=== PATIENT | female | born 1960 | race Caucasian/White ===

== ENCOUNTER 2016-05-29 10:45 | Emergency (ER) | payer OTHER ==
[~2016-05-29] VITALS: Ht 167.6 cm; Wt 78.5 kg
--- NOTE | 2016-05-29 11:44 | ED GENERAL ADULT ---
History of Present Illness General Chief Complaint: Upper Respiratory Sx/Fever Stated Complaint: COUGH, MAGALLANES,FEVER Source: patient Exam Limitations: no limitations Vital Signs & Intake/Output Vital Signs & Intake/Output Vital Signs Date Time Temp Pulse Resp B/P B/P Pulse O2 O2 Flow FiO2 Mean Ox Delivery Rate 05/29 1255 97.2 76 20 136/81 97 Room Air Room Air 05/29 1144 98 Room Air 05/29 1055 97.4 84 20 146/93 98 Room Air Room Air Allergies Coded Allergies: No Known Allergies (05/29/16) Reconcile Medications Amoxicillin 500 MG CAPSULE 1 CAP PO TID ANTIBIOTIC, INFECTION (Reported) Levothyroxine Sodium 100 MCG TABLET 1 TAB PO DAILY THYROID HEALTH (Reported) Linaclotide (Linzess) 290 MCG CAPSULE 1 CAP PO DAILY NEEDED CONSTIPATION ( Reported) Pantoprazole Sodium 40 MG TABLET.DR 1 TAB PO DAILY ACID REFLUX (Reported) Triage Note: PT TO ED WITH C/O FEVER, COUGH AND CONGESTION, HEADACHE, SAW PMD ON THURSDAY PUT ON ANTIBIOTICS, TAKING TYLENOL. PT TO ED WITH C/O STABBING HEADACHE TO TOP OF HEAD. Triage Nurses Notes Reviewed? yes Onset: Abrupt Duration: week(s): (2), constant, continues in ED Timing: recent history Injury Environment: home Severity: moderate, severe No Modifying Factors: none HPI: 56-year-old female comes into emergency room with multiple complaints. Patient reports that she's been feeling sick for about 2 weeks. She's been experiencing fever chills cough with mucus production runny nose and sinus congestion. She saw her primary care doctor on Thursday started her on amoxicillin. She also reports that she was experiencing a headache or 2 weeks but it got progressively worse over the last 4 days. She denies any vomiting or vision loss. Severe body aches and chills. Patient feels like she is not getting better but getting worse. Patient is looking for a more thorough workup. Denies any other associated symptoms. Denies any neck pain. Past History Travel History Traveled to [place] past 21 day No Medical History Any Pertinent Medical History? 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 No Review of Systems Review of Systems Constitutional: Reports: see HPI. EENTM: Reports: see HPI. Respiratory: Reports: see HPI. Cardiovascular: Reports: no symptoms. GI: Reports: no symptoms. Genitourinary: Reports: no symptoms. Musculoskeletal: Reports: see HPI. Skin: Reports: no symptoms. Neurological/Psychological: Reports: see HPI. Hematologic/Endocrine: Reports: no symptoms. Immunologic/Allergic: Reports: no symptoms. All Other Systems: Reviewed and Negative Physical Exam Physical Exam General Appearance: well developed/nourished, alert, awake, mild distress Head: atraumatic, normal appearance Eyes: Bilateral: normal appearance, EOMI. Ears, Nose, Throat: normal pharynx, normal ENT inspection Neck: normal inspection, full range of motion, no nuchal rigidity, full range of motion of neck, Respiratory: normal breath sounds, no respiratory distress Cardiovascular: regular rate/rhythm Back: normal inspection Extremities: normal inspection, normal range of motion, no edema Neurologic/Psych: no motor/sensory deficits, awake, alert, oriented x 3, normal gait, normal mood/affect Skin: intact, normal color Core Measures ACS in differential dx? No CVA/TIA Diagnosis: No Severe Sepsis Present: No Septic Shock Present: No Progress Differential Diagnoses I considered the following diagnoses in my evaluation of the patient: Influenza , sinusitis, pneumonia, bronchitis, viral syndrome, meningitis, subarachnoid hemorrhage, tension headache, migraine headache, temporal arteritis, Plan of Care: Orders Procedure Date/time Status RAPID VIRAL INFLUENZA A 05/29 1123 Complete VIRAL CULTURE 05/29 1123 Active COMPREHENSIVE METABOLIC PANEL 05/29 1123 Complete CBC WITHOUT DIFFERENTIAL 05/29 1123 Complete Laboratory Tests 05/29/16 1130: Anion Gap 10, Estimated GFR > 60, BUN/Creatinine Ratio 17.1, Glucose 91, Calcium 9.2, Total Bilirubin 0.6, AST 27, ALT 33, Alkaline Phosphatase 67, Total Protein 7.5, Albumin 4.2, Globulin 3.3, Albumin/Globulin Ratio 1.3, CBC w Diff NO MAN DIFF REQ, RBC 4.78, MCV 83.4, MCH 28.6, RDW 14.2, MPV 7.4, Gran % 54.2, Lymphocytes % 30.8, Monocytes % 13.1 H, Eosinophils % 1.5, Basophils % 0.4, Absolute Granulocytes 1.3 L, Absolute Lymphocytes 0.7 L, Absolute Monocytes 0.3, Absolute Eosinophils 0, Absolute Basophils 0, PUBS MCHC 34.3 05/29/16 1123: Virus Culture Pending Microbiology 05/29 1132 NASOPHARYN: Influenza Virus A & B Rapid Smear - COMP INFLUENZA TYPE B Diagnostic Imaging: Viewed by Me: Radiology Read, CT Scan. Discussed w/RAD: Radiology Read, CT Scan. Radiology Impression: SERVICE DATE: 05/29/16 EXAM TYPE: CAT - CT HEAD WO IV CONTRAST EXAMINATION: CT HEAD WITHOUT CONTRAST CLINICAL INFORMATION: Severe headache. Assess for sinusitis of pathology. COMPARISON: None. TECHNIQUE: Contiguous axial imaging was performed from the skull base to vertex without intravenous administration of contrast. DLP: 529.16 mGy-cm FINDINGS: There is no evidence of acute intracranial hemorrhage or territorial infarction. No abnormal mass effect or midline shift is seen. Crouch to white matter differentiation is well preserved. No extra-axial fluid collections are identified. The ventricles are normal in size. There is no abnormal attenuation within the brain parenchyma. The osseous structures and soft tissues are normal. The mastoid air cells are well-aerated. The left frontal sinus is not pneumatized. There is trace mucoperiosteal thickening in the anterior right ethmoid air cells. IMPRESSION: 1. There are no acute bleeds or territorial infarcts. 2. There is minimal right anterior ethmoid sinus mucoperiosteal thickening. DICTATED BY: LOLY ORANTES MD DATE/TIME DICTATED:05/29/161146 GERIATRIC CARE MANAGER:SHANNAN DATE/TIME TRANSCRIBED:05/29/161146, EXAM TYPE: RAD - XRY-CHEST XRAY, PA AND LATERAL EXAMINATION: XR CHEST CLINICAL INFORMATION: Cough and fever. COMPARISON: None. TECHNIQUE: 2 views of the chest were obtained. FINDINGS: The cardiomediastinal silhouette is within normal limits. The lungs and pleural spaces appear clear. There is no evidence of pneumothorax or pulmonary edema. Included osseous structures appear largely unremarkable. IMPRESSION: Unremarkable examination. DICTATED BY: GRAY MOTLEY MD Initial ED EKG: none Departure Departure Disposition: HOME OR SELF CARE Condition: Stable Clinical Impression Primary Impression: Influenza B Referrals: UNKNOWN (PCP/Family) Additional Instructions: Rest. Drink fluids. Ibuprofen for bodyaches fever. Return if any concerns worsening symptoms. Please go over all results of today's visit with your primary care doctor. Contact your primary care doctor to let them know you were here in the emergency room. There may be nonspecific findings which may not be related to your visit today here in the emergency room but may require further evaluation and chronic monitoring by your primary care doctor. If you had a laceration today the chance of foreign body always remains. You should follow-up with your primary care doctor for recheck in 3-5 days for a wound check. If you had an x-ray done there is a chance that a fracture could have been missed on initial read and you should follow-up with your primary care doctor for repeat x-rays if symptoms persist. If your blood pressure was elevated here in the emergency room please have rechecked by her primary care doctor within the next 48 hours by your primary care doctor. If you were prescribed a narcotic here in the emergency room or any type of controlled substances you're not allowed to drive while taking this medication or operate any type of heavy machinery. Narcotics can make you feel lightheaded dizziness nausea and can cause constipation. You may need to sweet pickle maker a stool softener. Thank you for choosing [facility] emergency room. Please return to the emergency room immediately if you have any other concerns worsening of symptoms. Departure Forms: Customer Survey General Discharge Information Comments 05/29/2016 2:34:28 PM Patient clinically looks well. Patient is nontoxic-appearing. No apparent distress. Positive flu swab. Rest. Treated clinically. Critical Care Note Critical Care Note Critical Care Time: non-applicable
[2016-05-29] MEDS ORDERED: AMOXICILLIN500 M2 PO (11:46)
[2016-05-29] MEDS ORDERED: PANTOPRAZOLE SO40 M1 PO (11:47)
[2016-05-29] MEDS ORDERED: LEVOTHYROXINE100 MC1 PO (11:47)
[2016-05-29] MEDS ORDERED: LINZESS290 MC1 PO (11:48)
[2016-05-29 11:52] LABS: ABSOLUTE BASOPHIL COUNT 0 /CUMM (0.0-0.2); ABSOLUTE EOSINOPHIL COUNT 0 /CUMM (0.0-0.7); ABSOLUTE GRANULOCYTE CT 1.3 /CUMM (1.4-6.5); ABSOLUTE LYMPH COUNT 0.7 /CUMM (1.2-3.4); ABSOLUTE MONOCYTE COUNT 0.3 /CUMM (0.10-0.60); BASOPHIL % 0.4 % (0.0-2.0); EOSINOPHIL % 1.5 % (0-5); GRANULOCYTE % 54.2 % (42.2-75.2); HEMATOCRIT 39.8 % (37-47); MEAN CORPUSCULAR HGB 28.6 PG (27.0-31.0); MEAN CORPUSCULAR HGB CONC 34.3 G/DL (33.0-37.0); MEAN CORPUSCULAR VOLUME 83.4 FL (81.0-99.0); MEAN PLATELET VOLUME 7.4 FL (7.4-10.4); PLATELET COUNT 162 /CUMM (130-400); RBC DISTRIBUTION WIDTH 14.2 % (11.5-14.5); RED BLOOD CELL CT 4.78 /CUMM (4.20-5.40); WHITE BLOOD CELL COUNT 2.4 /CUMM (4.8-10.8)
--- NOTE | 2016-05-29 11:55 | RADIOLOGY REPORT ---
EXAMINATION: XR CHEST CLINICAL INFORMATION: Cough and fever. COMPARISON: None. TECHNIQUE: 2 views of the chest were obtained. FINDINGS: The cardiomediastinal silhouette is within normal limits. The lungs and pleural spaces appear clear. There is no evidence of pneumothorax or pulmonary edema. Included osseous structures appear largely unremarkable. IMPRESSION: Unremarkable examination.
--- NOTE | 2016-05-29 11:57 | CT SCAN REPORT ---
EXAMINATION: CT HEAD WITHOUT CONTRAST CLINICAL INFORMATION: Severe headache. Assess for sinusitis of pathology. COMPARISON: None. TECHNIQUE: Contiguous axial imaging was performed from the skull base to vertex without intravenous administration of contrast. DLP: 529.16 mGy-cm FINDINGS: There is no evidence of acute intracranial hemorrhage or territorial infarction. No abnormal mass effect or midline shift is seen. Crouch to white matter differentiation is well preserved. No extra-axial fluid collections are identified. The ventricles are normal in size. There is no abnormal attenuation within the brain parenchyma. The osseous structures and soft tissues are normal. The mastoid air cells are well-aerated. The left frontal sinus is not pneumatized. There is trace mucoperiosteal thickening in the anterior right ethmoid air cells. IMPRESSION: 1. There are no acute bleeds or territorial infarcts. 2. There is minimal right anterior ethmoid sinus mucoperiosteal thickening.
[2016-05-29 12:55] VITALS: BP 136/81
== END 2016-05-29 13:06 ==
LOC: ERH 10:45
PROVIDERS: Physician Assistant Medical
DX: J10.1 Influenza due to other identified influenza virus with other respiratory manifestations (principal); R50.9 Fever, unspecified
CPT/HCPCS: 87804; 87804-59; 96372; J1885